=== PATIENT | female | born 1990 | race Caucasian/White ===

== ENCOUNTER 2017-03-27 10:11 | Emergency (ER) | payer BC ==
--- NOTE | 2017-03-27 11:57 | RAD ---
HISTORY: Left wrist trauma COMPARISONS: None VIEWS: 4, Frontal, lateral, and oblique views of the left wrist FINDINGS: BONE DENSITY: Normal. BONES: On a single frontal projection, there is a questionable linear lucency of the distal radial metaphysis extending to the articular surface. JOINTS: There is no arthropathy. ALIGNMENT: There is no dislocation. SOFT TISSUES: Unremarkable. OTHER FINDINGS: None. IMPRESSION: QUESTIONABLE NONDISPLACED FRACTURE OF THE DISTAL RADIAL METAPHYSIS. IF SYMPTOMS PERSIST, RECOMMEND REPEAT IMAGING.
[2017-03-27 12:27] VITALS: BP 135/80
--- NOTE | 2017-03-27 13:32 | UC ---
Hand/Wrist HPI - HPI Summary HPI Summary: LOST BALANCE TURNING AWAY FROM LOCKING CAR DOOR THIS MORNING, FELL ONTO OUTSTRRETCHED LEFT HAND. PAIN IN LEFT THUMB AND WRIST. NO RPEVIOUS INJURY - History Of Current Complaint Chief Complaint: UCUpperExtremity Stated Complaint: WRIST INJURY FROM FALL Time Seen by Provider: 03/27/17 11:15 Hx Obtained From: Patient Hx Last Menstrual Period: 01/08/17 Onset/Duration: Sudden Onset, Lasting Hours, Still Present Severity Initially: Moderate Severity Currently: Moderate Pain Intensity: 0 Pain Scale Used: 0-10 Numeric Character Of Pain: Dull, Aching Aggravating Factor(s): Lifting, Flexion, Extension Alleviating: Nothing Associated Signs And Symptoms: Positive: Negative Related History: Dominant Hand Right - Allergies/Home Medications Allergies/Adverse Reactions: Allergies Allergy/AdvReac Type Severity Reaction Status Date / Time Mupirocin Allergy Hives Verified 03/27/17 10:24 PMH/Surg Hx/FS Hx/Imm Hx Previously Healthy: Yes - Surgical History Surgical History: None - Family History Known Family History: Negative: Other - JOINT LAXITY - Social History Occupation: Employed Full-time Lives: With Family Alcohol Use: Rare Substance Use Type: None Smoking Status (MU): Never Smoked Tobacco Review of Systems Constitutional: Negative Skin: Negative Eyes: Negative ENT: Negative Respiratory: Negative Cardiovascular: Negative Gastrointestinal: Negative Genitourinary: Negative Motor: Negative Neurovascular: Negative Musculoskeletal: Arthralgia, Myalgia Neurological: Negative Psychological: Negative All Other Systems Reviewed And Are Negative: Yes Physical Exam Triage Information Reviewed: Yes Appearance: Well-Appearing, Well-Nourished, Pain Distress - MILD Vital Signs: Initial Vital Signs Temp 98 F 03/27/17 10:25 Pulse 83 03/27/17 10:25 Resp 17 03/27/17 10:25 BP 141/79 03/27/17 10:25 Pulse Ox 99 03/27/17 10:25 Vital Signs Reviewed: Yes Eye Exam: Normal ENT Exam: Normal Dental Exam: Normal Neck exam: Normal Neck: Positive: Supple, Nontender, No Lymphadenopathy Respiratory Exam: Normal Respiratory: Positive: Chest non-tender, Lungs clear, Normal breath sounds, No respiratory distress, No accessory muscle use Cardiovascular Exam: Normal Cardiovascular: Positive: RRR, No Murmur, Pulses Normal, Brisk Capillary Refill Abdominal Exam: Normal Musculoskeletal: Positive: No Edema, Strength Limited @ - LEFT WRIST, ROM Limited @ - FLEXION LEFT WRIST/THUMB, Other: - LEFT SNUFFBOX TENDER Neurological Exam: Normal Psychological Exam: Normal Skin Exam: Normal Hand/Wrist Course/Dx - Differential Dx/Diagnosis Differential Diagnosis/HQI/PQRI: Fracture, Sprain, Strain Provider Diagnoses: CLOSED POSSIBLE NONDISPLACED FRACTURE OF LEFT DISTAL RADIAL METAPHYSIS Discharge - Discharge Plan Condition: Stable Disposition: HOME Patient Education Materials: Wrist Injury (ED), Suspected Fracture (ED) Forms: *Work Release Referrals: Florentino Downey MD [Medical Doctor] - Saji Victor MD [Primary Care Provider] -
== END 2017-03-27 12:32 | disposition home or self-care (01) ==
LOC: UCEAST 10:11
DX: S69.92XA Unspecified injury of left wrist, hand and finger(s), initial encounter (principal); W18.30XA Fall on same level, unspecified, initial encounter; Y93.9 Activity, unspecified; Y92.9 Unspecified place or not applicable
CPT/HCPCS: 99212; G0463

== ENCOUNTER → 2018-08-13 23:11 | Emergency (ER) | payer BC ==
[~2018-08-13 23:11] MED LIST: Ondansetron ODT TAB* 4 MG SL ONE
--- OUTSIDE RECORDS SUMMARY | 2018-08-13 23:25 | XMS REPORT | Continuity of Care Document ---
:1990 External Reference #:[id number] Author Name Brianna Cason MD Address [address] [place] [address] Care Team Providers Name Role Phone [facility] Primary Care Physician Unavailable Payers Type Date Identification Numbers Payment Provider Subscriber Effective: Policy Number: [id number] Mari BC/BS Lexi Calles 2014 [facility] PayID: [id number] [address] [address] [place] [address] Advance Directives Description No Information Available Problems Description No Active Problems Family History Date Family Member(s) Problem(s) Comments Father Hypercholesterolemia Father Hypertension Mother Pulmonic Stenosis Mother Hypertension Mother Hypercholesterolemia Mother Hypothyroidism Number of Children None Number of Siblings Siblings: 1 Order Patient is the oldest of two children First Sister Asthma Paternal Grandfather Diabetes Paternal Grandfather Prostate Cancer Paternal Grandfather Hypertension Paternal Grandfather MS Paternal Grandmother Colon Cancer Maternal Grandfather due to Diabetes () Maternal Grandfather due to Heart Disease () Maternal Grandfather due to COPD () Maternal Grandmother Breast Cancer Maternal Grandmother Hypercholesterolemia Maternal Grandmother Aortic Stenosis Maternal Grandmother Hypertension Maternal Grandmother Hypothyroidism Social History Type Date Description Comments Sex Unknown Education Highest level of education completed is an associate degree Marital Status Patient is Living Situation Lives with spouse Occupation RN [employer] Cigarette Use Never smoked cigarettes Alcohol Rarely drinks alcohol Tobacco Use Start: Unknown Patient has never smoked Drug Use Denies drug use Smoking Status Reviewed: 07/16/18 Patient has never smoked Daily Caffeine occ soda Exercise Type/Frequency Exercises sporadically Current Seat Belt/Car Seat Always uses a seat belt Currently Active The patient is currently sexually active Contraceptive Methods Does not currently use any method of control STD's No STD history Allergies, Adverse Reactions, Alerts Date Description Reaction Status Severity Comments 07/12/2014 Mupirocin Active 05/13/2010 NKDA Inactive Medications Medication Date Status Form Strength Qnty SIG Indications Ordering Provider Metformin HCL 03/05/ Active Tablets ER 500mg 360tab two tabs in Tia ER 2017 24HR s in the Koch, morning and CNM at night / Active Tablets 14-0.4mg 1 by mouth Unknown Complete 0000 every day Vitamin D / Active Unknown 0000 Iron (Ferrous / Active Unknown Sulfate) 0000 B-12 / Active Unknown 0000 Prometrium 05/12/ Hx Capsules 200mg 30caps take 1 Lakesha 2017 - capsule by Mateo 07/13/ mouth 10 2018 days every 3 months Doxycycline 05/12/ Hx Tablets 100mg 6tabs 1 by mouth Lakesha Hyclate 2017 - twice a day Mateo 07/14/ for 3 days 2018 Prometrium 04/05/ Hx Capsules 100mg 90caps 1 by mouth Lakesha 2017 - at bedtime Mateo 05/12/ days 1-10 2017 of month. Nor-qd 08/14/ Hx Tablets 0.35mg 28tabs 1 by mouth Z30.49 Rayna 2015 - every day Kandace, 04/10/ needs ANP-C 2015 appointment No Active 06/15/ Hx Unknown Medications 2012 - 2012 Nuvaring 06/15/ Hx Ring 0.12-0.015 1units insert as Z30.49 Rayna 2012 - mg/24HR directed. Kandace, 08/14/ ANP-C 2015 June Fe 08/29 07/30/ Hx Tabs 1-20mg-mcg 28tabs Take One Rayna 2009 - Tablet By Kandace, 06/08/ Mouth One ANP-C 2010 Time Daily Loestrin Fe 05/13/ Hx Tablets 1-20mg-mcg 3month 1 po qd V25.49 Rayna 08/29 2009 - s Jump, 06/08/ ANP-C 2010 Ortho-Tri / Hx Unknown Cyclen Lo 0000 - 2010 Sprintec 28 / Hx Unknown - 2011 Metoprolol / Hx 25mg Unknown Succinate ER 2015 Aspirin / Hx 81mg Unknown 2016 Topiramate / Hx 25mg Unknown 2016 Vitamin B-12 / Hx Tablets 50mcg 1 po qd Unknown 2017 Medications Administered in Office Medication Date Status Form Strength Qnty SIG Indications Ordering Provider PT SCRN Tbco Administered Injection Yoav Id as Non User 018 MD Brianna PT SCRN Tbco Administered Injection Lakesha Id as Non User 018 MD Mateo PT SCRN Tbco Administered Injection Lakesha Id as Non User 018 MD Mtaeo Immunizations Description No Information Available Vital Signs Date Vital Result Comment 07/16/2018 10:05am BP Systolic 124 mmHg BP Diastolic 72 mmHg Height 64 inches 5'4" Weight 227.00 lb BMI (Body Mass Index) 39.0 kg/m2 Last Menstrual Period [id number] 0 05/12/2018 11:41am BP Systolic 138 mmHg BP Diastolic 70 mmHg Height 64 inches 5'4" Weight 224.00 lb BMI (Body Mass Index) 38.4 kg/m2 Last Menstrual Period [id number] 0 03/31/2018 1:40pm BP Systolic 134 mmHg BP Diastolic 72 mmHg Height 64 inches 5'4" Weight 222.00 lb BMI (Body Mass Index) 38.1 kg/m2 Last Menstrual Period [id number] 0 12/31/2017 1:05pm BP Systolic 112 mmHg BP Diastolic 84 mmHg Height 64 inches 5'4" Weight 220.00 lb BMI (Body Mass Index) 37.8 kg/m2 Last Menstrual Period [id number] 0 Parity 0 10/29/2017 2:28pm BP Systolic 122 mmHg BP Diastolic 80 mmHg Height 64 inches 5'4" Weight 224.00 lb BMI (Body Mass Index) 38.4 kg/m2 0 Parity 0 03/05/2017 9:23am BP Systolic 130 mmHg BP Diastolic 76 mmHg Height 64 inches 5'4" Weight 234.00 lb BMI (Body Mass Index) 40.2 kg/m2 Last Menstrual Period [id number] 0 01/26/2017 11:28am BP Systolic 126 mmHg BP Diastolic 76 mmHg Height 64 inches 5'4" Weight 234.00 lb BMI (Body Mass Index) 40.2 kg/m2 Last Menstrual Period [id number] 0 08/14/2015 2:22pm BP Systolic 140 mmHg BP Diastolic 70 mmHg Height 63.75 inches 5'3.75" Weight 227.00 lb BMI (Body Mass Index) 39.3 kg/m2 Last Menstrual Period [id number] 0 Parity 0 08/09/2014 8:47am BP Systolic 112 mmHg BP Diastolic 66 mmHg Height 63.75 inches 5'3.75" Weight 214.00 lb BMI (Body Mass Index) 37.0 kg/m2 Last Menstrual Period [id number] 0 Parity 0 07/12/2014 2:50pm BP Systolic 102 mmHg BP Diastolic 66 mmHg Height 63.75 inches 5'3.75" Weight 214.00 lb BMI (Body Mass Index) 37.0 kg/m2 Last Menstrual Period [id number] 0 Parity 0 06/15/2013 8:32am BP Systolic 130 mmHg BP Diastolic 80 mmHg Height 63.75 inches 5'3.75" Weight 214.00 lb BMI (Body Mass Index) 37.0 kg/m2 Last Menstrual Period [id number] 0 Parity 0 06/08/2012 1:53pm BP Systolic 136 mmHg BP Diastolic 76 mmHg Height 63.75 inches 5'3.75" Weight 196.00 lb BMI (Body Mass Index) 33.9 kg/m2 Last Menstrual Period [id number] 0 Parity 0 05/13/2010 10:34am BP Systolic 138 mmHg BP Diastolic 78 mmHg Height 63.75 inches 5'3.75" Weight 190.00 lb BMI (Body Mass Index) 32.9 kg/m2 Last Menstrual Period [id number] 0 Results Test Date Facility Test Result H/L Range Note Laboratory test 07/14/2018 [facility] C Reactive 9.37 mg/L High <8.01 1 [place] [address] Protein [phone] Hemoglobin A1c 5.4 % N 4.0-5.6 2 CBC Auto Diff 07/14/2018 [facility] White Blood 5.9 10^3/uL N 3.5-10.8 [place] [address] Count [phone] Red Blood Count 4.50 10^6/uL N 4.00-5.40 Hemoglobin 12.2 g/dL N 12.0-16.0 Hematocrit 38 % N 35-47 Mean Corpuscular Volume 84 fL N 80-97 Mean Corpuscular Hemoglobin 27 pg N 27-31 Mean Corpuscular HGB Conc 33 g/dL N 31-36 Red Cell Distribution Width 16 % High 10.5-15 Platelet Count 303 10^3/uL N 150-450 Mean Platelet Volume 8.5 fL N 7.4-10.4 Abs Neutrophils 3.7 10^3/uL N 1.5-7.7 Abs Lymphocytes 1.6 10^3/uL N 1.0-4.8 Abs Monocytes 0.4 10^3/uL N 0-0.8 Abs Eosinophils 0.1 10^3/uL N 0-0.6 Abs Basophils 0 10^3/uL N 0-0.2 Abs Nucleated RBC 0 10^3/uL Granulocyte % 62.3 % Lymphocyte % 27.9 % Monocyte % 6.9 % Eosinophil % 2.2 % Basophil % 0.7 % Nucleated Red Blood Cells % 0 Laboratory test 07/14/2018 [facility] Sedimentation Rate 25 mm/ Hr High 0-14 [place] [address] [phone] Lyme Disease Serology Negative Negative 3 Laboratory test 06/04/2018 [facility] Follicle 6.7 mIU/mL [address] [place] [address] Stimulating [phone] Hormone Estradiol 55 pg/mL 5 Comp Metabolic Panel 04/01/2018 [facility] Sodium 137 mmol/L N 135-145 6 [place], [place] [id number] [phone] Potassium 4.2 mmol/L N 3.5-5.0 Chloride 102 mmol/L N 101-111 Co2 Carbon Dioxide 26 mmol/L N 22-32 Anion Gap 9 mmol/L N 2-11 Glucose 84 mg/dL N 70-100 Blood Urea Nitrogen 15 mg/dL N 6-24 Creatinine 0.57 mg/dL N 0.51-0.95 BUN/Creatinine Ratio 26.3 High 8-20 Calcium 9.5 mg/dL N 8.6-10.3 Total Protein 6.7 g/dL N 6.4-8.9 Albumin 4.3 g/dL N 3.2-5.2 Globulin 2.4 g/dL N 2-4 Albumin/Globulin Ratio 1.8 N 1-3 Total Bilirubin 0.30 mg/dL N 0.2-1.0 Alkaline Phosphatase 101 U/L N 34-104 Alt 31 U/L N 7-52 Ast 21 U/L N 13-39 Egfr Non- 127.2 >60 Egfr 153.9 >60 7 Laboratory test 04/01/2018 [facility] Vitamin B12 397 pg/mL N 180-404 [address] [place] [address] [phone] Vitamin D Total 25(Oh) 44.7 ng/mL N 20-50 CBC With No 04/01/2018 [facility] White Blood 7.0 10^3/uL N 3.5-10.8 [place] [address] Count [phone] Red Blood Count 4.20 10^6/uL N 4.00-5.40 Hemoglobin 10.8 g/dL Low 12.0-16.0 Hematocrit 33 % Low 35-47 Mean Corpuscular Volume 79 fL Low 80-97 Mean Corpuscular Hemoglobin 26 pg Low 27-31 Mean Corpuscular HGB Conc 33 g/dL N 31-36 Red Cell Distribution Width 17 % High 10.5-15 Platelet Count 285 10^3/uL N 150-450 Mean Platelet Volume 8.2 um3 N 7.4-10.4 Laboratory test 10/29/2017 [facility] TSH 1.45 mcIU/mL N 0.34- 5.60 9, 10 [place] [address] [phone] T4 Free 0.92 ng/dL N 0.61-1.12 11 Vitamin B12 190 pg/mL N 180-176 12 FSH 6.9 mIU/mL 13 Lutenizing Hormone 10.4 mcIU/mL 14 Prolactin 8.4 ng/mL N 1.0-25.0 15 Testosterone Total 55.61 ng/dL N 8-60 16 Hemoglobin A1c 5.2 % N 4.0-5.6 17 Laboratory test 03/05/2017 [facility] Cytology SEE RESULT [address] [place] [address] BELOW [phone] Thinprep Pap Test 07/12/2014 [facility] ThinPrep Pap (SEE NOTE) 19 Use Standing Order Test reflex HPV if Asc-US TP Pap w/reflex HR HPV if ASCUS+1618 SEE IMAGE Laboratory test 06/15/2013 [facility] Cytology RUN DATE: 20 finding [place] [address] 06/20/ <SEE [phone] NOTE> Laboratory test 06/08/2012 [facility] Cytology RUN DATE: 21 finding [place] [address] <SEE [phone] NOTE> GC/Chlamydia 05/13/2010 [facility] CHL On Thin NEGATIVE Negative 22 Thin Prep Vial [place] [address] Prep Vial [phone] GC On Thin Prep Vial NEGATIVE Negative 23 Laboratory test 05/13/2010 [facility] Cytology normal 24 finding [place] [address] <SEE NOTE> [phone] 1 called and left message to return phone call. keg 2 Therapeutic target for the treatment of diabetes mellitus patients is <7% HBA1C, and in selective patients <6.0%. Please refer to [place] [employer] diabetic care guidelines for further information. 3 No evidence of antibodies to B. burgdorferi detected. False negative results may occur in recently infected patients (<=2 weeks) due to low or undetectable antibody levels to B. burgdorferi. If recent exposure is suspected, a second sample should be collected and tested in 2-4 weeks. Test Performed by: [facility] [address] [place] [address] 4 Normally menstruating females - Follicular phase 3 - 9 - Mid-cycle peak 4 - 23 - Luteal phase 1 - 6 Postmenopausal females 16 - 114 5 Estradiols <40 pg/mL are sent to a reference lab for low range testing. Postmenopausal Females < 20 Ovulating females: by day in cycle relative to LH Peak Follicular phase - 12 10-50 - 4 60-200 Mid-cycle - 1 120-375 Luteal phase + 2 50-155 + 6 60-260 + 12 15-115 6 Reviewed results. Pt to switch to SL B12 and change to ferrous gluconate daily. Pt with anemia form heavy mense /will add on micronized progesterone 100 mg hs for 10 of the month to prevent menorrhagia. KEG left message to return phone call. keg 7 Because ethnic data is not always readily available, this report includes an eGFR for both -Americans and non- Americans. The National Kidney Disease Education Program (NKDEP) does not endorse the use of the MDRD equation for patients that are not between the ages of 18 and 70, are , have extremes of body size, muscle mass, or nutritional status, or are non- or non-. According to the National Kidney Foundation, irrespective of diagnosis, the stage of the disease is based on the level of kidney function: Stage Description GFR(mL/min/1.73 m(2)) 1 Kidney damage with normal or decreased GFR 90 2 Kidney damage with mild decrease in GFR 60-89 3 Moderate decrease in GFR 30-59 4 Severe decrease in GFR 15-29 5 Kidney failure <15 (or dialysis) 8 Normal Range 180 to 914 Indeterminate Range 145 to 180 Deficient Range <145 9 left message to return phone call to review results.Pt to call Md's cell number. TAMIKA 10 [id number] 11 [id number] 12 Normal Range 180 to 914 Indeterminate Range 145 to 180 Deficient Range <145 13 Normally menstruating females - Follicular phase 3 - 9 - Mid-cycle peak 4 - 23 - Luteal phase 1 - 6 Postmenopausal females 16 - 114 14 Normally menstruating females - Follicular Phase 1 - 18 - Mid-Cycle Peak 24 - 105 - Luteal Phase 0.6 - 20 Postmenopausal females 15 - 62 15 [id number] 16 [id number] 17 Therapeutic target for the treatment of diabetes mellitus patients is <7% HBA1C, and in selective patients <6.0%. Please refer to [place] [employer] diabetic care guidelines for further information. 18 SEE RESULT BELOW Name: LEXI CALLES : [address]: Coleman Wilder MD Acct: [id number] Unit: [id number] AGE: 27 Location: [facility] Re03/05/17 SEX: F Status: REG REF SPEC: [id number] ELLIOT: 03/05/17-1019 [facility] DR: Coleman Wilder MD REQ: [id number] RECD: 03/05/171202 STATUS: SOUT _ ORDERED: TP IMAGE ANAL COMMENTS: [id number] FINAL DIAGNOSIS Negative for Intraepithelial lesion or Malignancy A. Ectocervical/Endocervical Specimen Adequacy: Satisfactory of evaluation Transformation zone component identified Patient Information: HPV: Thin Layer Pap Test w/reflex to high risk HPV RNA testing when ASCUS Actual Specimen Date: 03/05/17 Last Menstrual Date: 01/25/17 Date of Last Specimen: 07/12/14 Signed (signature on file) JUAN Palm (ASCP) 03/06 4072 This Pap test was evaluated with the assistance of the Turned [employer] Digitalp Test Imaging System. Due to cytologic findings at the steeping press operator microscope, comprehensive manual rescreening by a Envelope Stuffer may be required. The Pap Smear is a screening test designed to aid in the detection of premalignant and malignant conditions of the uterine cervix. It is not a diagnostic procedure and should not be used as the sole means of detecting cervical cancer. Both false- positive and false- negative reports do occur. Depending on your risk status, a Pap smear should be obtained and evaluated every 1-3 years. END OF REPORT * ML=Testing performed at Main Lab DEPARTMENT OF PATHOLOGY, [address] [place] [address] Molina Arellano M.D. Director YUSUF # [id number] 19 SPECIMEN PART A. Cervical, Endocervical, ThinPrep Pap (Senior Chemical Engineer) CYTOLOGY HX Date of Last Menstrual Period: 06/12/2014 Other Information: Previous Pap: 07/04/2013 Routine Exam FINAL DIAGNOSIS INTERPRETATION: Negative for Intraepithelial Lesion or Malignancy. SPECIMEN ADEQUACY: Satisfactory for evaluation. Endocervical/transformation zone component present. 20 RUN DATE: 06/20/13 [facility] LAB LIVE PAGE 1 RUN TIME: [address] [place] [address] Specimen Inquiry Name: LEXI BOO : [address]: Rayna Jeronimo CNP Acct: [id number] Unit: [id number] AGE: 23 Location: [facility] Re06/15/13 SEX: F Status: REG REF SPEC: [id number] ELLIOT: 06/15/13[address] [facility] DR: Rayna Jeronimo CNP REQ: [id number] RECD: 06/15/13 STATUS: SOUT _ ORDERED: IMAGE ANALYSIS FINAL DIAGNOSIS Negative for Intraepithelial lesion or Malignancy A. Ectocervical/Endocervical Specimen Adequacy: Satisfactory of evaluation Transformation zone component identified Patient Information: HPV: Thin Layer Pap Test w/reflex to high risk HPV DNA testing when ASCUS Actual Specimen Date: 06/15/13 Last Menstrual Date: 04/24/13 Date of Last Specimen: 06/08/12 Signed (signature on file) JUAN Palm (ASCP) 06/20 0808 This Pap test was evaluated with the assistance of the [employer] UpPrep Test Imaging System. Due to cytologic findings at the steeping press operator microscope, comprehensive manual rescreening by a Envelope Stuffer may be required. The Pap Smear is a screening test designed to aid in the detection of premalignant and malignant conditions of the uterine cervix. It is not a diagnostic procedure and should not be used as the sole means of detecting cervical cancer. Both false- positive and false- negative reports do occur. Depending on your risk status, a Pap smear shoudl be obtained and evaluated every 1-3 years. END OF REPORT * ML=Testing performed at Main Lab DEPARTMENT OF PATHOLOGY, [address] [place] [address] Molina Arellano M.D. Director [facility] Permit #[id number] RUN DATE: 06/09/12 [facility] LAB LIVE PAGE 1 RUN TIME: 1420 [address] [facility], [place], [place] [address] Specimen Inquiry Name: LEXI BOO BITA : [address]: Rayna Jeronimo CNP Acct: [id number] Unit: [id number] AGE: 22 Location: [facility] Re06/08/12 SEX: F Status: REG REF SPEC: [id number] ELLIOT: 06/08/12-[address]: Rayna Jeronimo CNP REQ: [id number] RECD: 06/09/12-5770 STATUS: SOUT _ ORDERED: IMAGE ANALYSIS Negative for Intraepithelial lesion or Malignancy A. Ectocervical/Endocervical Specimen Adequacy: Satisfactory of evaluation Transformation zone component identified Patient Information: HPV: Thin Layer Pap Test w/reflex to high risk HPV DNA testing when ASCUS Actual Specimen Date: 06/08/12 Last Menstrual Date: 05/14/12 Date of Last Specimen: 05/13/10 Signed (signature on file) JUAN Palm (ASCP) 06/09 8366 This Pap test was evaluated with the assistance of the [employer] UpPrep Test Imaging System. Due to cytologic findings at the steeping press operator microscope, comprehensive manual rescreening by a Envelope Stuffer may be required. The Pap Smear is a screening test designed to aid in the detection of premalignant and malignant conditions of the uterine cervix. It is not a diagnostic procedure and should not be used as the sole means of detecting cervical cancer. Both false- positive and false- negative reports do occur. Depending on your risk status, a Pap smear shoudl be obtained and evaluated every 1-3 years. END OF REPORT * ML=Testing performed at [facility] DEPARTMENT OF PATHOLOGY, [address] [place] [address] Molina Arellano M.D. Director [facility] Permit #[id number] 22 . A negative result does not preclude the presence of a C.trachomatis or N.gonorrhoeae infection because results are dependent on adequate specimen collection, absence of inhibitors, and sufficient rRNA to be detected. Test results may be affected by improper specimen collection, improper specimen storage, technical error, or specimen mixup. . 23 . A negative result does not preclude the presence of a C.trachomatis or N.gonorrhoeae infection because results are dependent on adequate specimen collection, absence of inhibitors, and sufficient rRNA to be detected. Test results may be affected by improper specimen collection, improper specimen storage, technical error, or specimen mixup. . 24 ---- RUN DATE: 05/14/10 [facility] NMI LIVE PAGE 1 RUN TIME: 1015 Specimen Inquiry RUN USER: INTERFACE -- Name: LEXI BOO Status: REG REF Re05/13/10 Age/Sex: 20/F Unit#: [id number] Location: [facility]. : [birth year] -- Specimen: [id number] SOUT Spec Date: 05/13/10 [facility] Dr: Rayna Celis mp CARDIOLOGY TECHNOLOGIST Spec Type: CYTOLOGY Received: 05/14/1042 Copies to: SOURCE ECTOCERVICAL/ENDOCERVICAL Thin Prep with Reflex HPV Test PATIENT INFORMATION ACTUAL COLLECTION DATE: 05/13/10 LAST MENSTRUAL PERIOD: 04/14/10 PATIENT HISTORY: first pap ADEQUACY OF SPECIMEN Satisfactory for evaluation * Transformation zone component identified * DIAGNOSIS NEGATIVE FOR INTRAEPITHELIAL LESION OR MALIGNANCY * This Pap test was evaluated with the assistance of the ThinPrep Pap Test Imaging System. The Pap Smear is a screening test designed to aid in the detection of premalign ant and malignant conditions of the uterine cervix. It is not a diagnostic procedure a nd should not be used as the sole means of detecting cervical cancer. Both false- positiv e and false-negative reports do occur. Depending on your risk status, a Pap smear sally uld be obtained and evaluated every one to three years. Final Interpretation electronically signed by: Lorrie CAMP([facility]) 05/14/10 101 4 -- -- DEPARTMENT OF PATHOLOGY, [address] [place] [address] [facility] Permit #[id number] Molina Arellano M.D. Director Trinidad Vasquez M.D. Continuous Improvement Coordinator Dir puente -- Procedures Date Code Description Status 06/07/2018 74903 Hysterosalpingogram Completed 12/31/2017 58943 Echography Transvaginal Completed 03/05/2017 47975 Echography Transvaginal Completed 08/09/2014 29953 Echography Transvaginal Completed Encounters Type Date Location Provider Dx Diagnosis Office Visit 07/16/2018 [facility] Brianna Cason, N97.9 Female infertility, 10:00a unspecified Office Visit 03/31/2018 [facility] Lakesha Galindo, E28.2 Polycystic ovarian 1:45p syndrome Office Visit 12/31/2017 [facility] Lakesha Galindo, E28.2 Polycystic ovarian 1:15p syndrome Office Visit 03/05/2017 [facility] Coleman Wilder, Z01.411 Encntr for obstetrician gynecologist exam 9:30a M.D. (general) (routine) w abnormal findings E28.2 Polycystic ovarian syndrome Office Visit 01/26/2017 11:30a [facility] Coleman Wilder, N92.0 Excessive and M.D. frequent menstruation with regular cycle Z13.0 Encntr screen for dis of the bld[facility] Visit 08/14/2015 2:40p [facility] Rayna Jeronimo, Z01.419 Encntr for obstetrician gynecologist ANP-C exam (general) (routine) w/o abn findings Office Visit 08/09/2014 9:00a [facility] Rayna Jeronimo, 789.9 Abdomen & Pelvis ANP-C Symptoms Other 625.3 Dysmenorrhea Office Visit 07/12/2014 3:00p [facility] Rayna Jeronimo, V72.31 Routine Rip Tailer ANP-C Examination V76.2 Screening Malignant Neoplasm Cervix V25.49 Contraceptive Other Method Surveillance 789.9 Abdomen & Pelvis Symptoms Other Office Visit 06/15/2013 8:40a [facility] Rayna Jeronimo, V72.31 Routine Rip Tailer ANP-C Examination V76.2 Screening Malignant Neoplasm Cervix V25.49 Contraceptive Other Method Surveillance Office Visit 06/08/2012 2:20p [facility] Rayna Jeronimo, V72.31 Routine Rip Tailer ANP-C Examination V76.2 Screening Malignant Neoplasm Cervix 616.10 Vaginitis & Vulvovaginitis Unspec Office Visit 05/13/2010 10:40a [facility] Rayna Jeronimo, 626.2 Menstruation ANP-C Excessive Or Frequent V25.49 Contraceptive Other Method Surveillance Plan of Treatment 07/16/2018 - Brianna Cason MDN97.9 Female infertility, unspecifiedComments: Emphasized the importance of weight loss and its significant impact on fertility and . Discussed alternative forms of exercise that will not bother her foot including pool classes or riding abike. Recommend seeing a commercial cleaner or six sigma black trainer who can keep her accountable with diet changes and exercise. Encourage serious focus on weight loss for 6 months before discussing clomid forcycle control since the weight is likely impacting her cycles and ability to become . Also encourage a consult with a fertility specialise to discuss her options in regards to the blocked tube.
--- NOTE | 2018-08-14 01:29 | ED ---
Abdominal Pain/Female - HPI Summary HPI Summary: This patient is a 28 year old F presenting to [facility] accompanied by with a chief complaint of epigastric abdominal pain for the past four days. Pain 6/ 10 upon triage. Reports nausea, intermittent vomiting and diarrhea. Reports max fever of 100F . - History of Current Complaint Chief Complaint: EDAbdPain Stated Complaint: ABD PAIN/FEVER Time Seen by Provider: 08/14/18 01:25 Hx Obtained From: Patient Hx Last Menstrual Period: 01/08/17 Onset/Duration: Gradual Onset, Lasting Days Timing: Constant Pain Intensity: 6 Pain Scale Used: 0-10 Numeric Location: Epigastric Alleviating Factor(s): Nothing Associated Signs and Symptoms: Positive: Fever, Nausea, Vomiting, Diarrhea Allergies/Adverse Reactions: Allergies Allergy/AdvReac Type Severity Reaction Status Date / Time MS Mupirocin [Mupirocin] Allergy Hives Verified 04/03/17 15:29 PMH/Surg Hx/FS Hx/Imm Hx Endocrine/Hematology History: Denies: Hx Diabetes, Hx Thyroid Disease Cardiovascular History: Denies: Hx Hypertension, Hx Pacemaker/ICD Respiratory History: Denies: Hx Asthma, Hx Chronic Obstructive Pulmonary Disease (COPD) GI History: Denies: Hx Ulcer History: Denies: Hx Renal Disease Sensory History: Denies: Hx Hearing Aid Neurological History: Reports: Hx Seizures Psychiatric History: Denies: Hx Panic Disorder Infectious Disease History: No Infectious Disease History: Denies: Hx Clostridium Difficile, Hx Hepatitis, Hx Human Immunodeficiency Virus (HIV), Hx of Known/Suspected MRSA, Hx Shingles, Hx Tuberculosis, Hx Known/ Suspected VRE, Hx Known/Suspected VRSA, History Other Infectious Disease, Traveled Outside the [place] in Last 30 Days - Family History Known Family History: Negative: Other - JOINT LAXITY - Social History Alcohol Use: Rare Substance Use Type: Reports: None Smoking Status (MU): Never Smoked Tobacco Review of Systems Positive: Fever Positive: Abdominal Pain, Vomiting, Diarrhea, Nausea All Other Systems Reviewed And Are Negative: Yes Physical Exam - Summary Physical Exam Summary: Appearance: Well-appearing, Well-nourished, lying in bed comfortably Skin: Warm, dry, no obvious rash Eyes: sclera anicteric, no conjunctival pallor ENT: mucous membranes moist, pharynx appears normal Neck: Supple, nontender Respiratory: Clear to auscultation, no signs of respiratory distress Cardiovascular: Normal S1, S2. No murmurs. Normal distal pulses in tibial and radial bilaterally. Abdomen: Soft, nontender, normal active bowel sounds present Musculoskeletal: Normal, Strength/ROM Intact Neurological: A&Ox3, awake and alert, mentation is normal, speech is fluent and appropriate Psychiatric: affect is normal, does not appear anxious or depressed Triage Information Reviewed: Yes Vital Signs On Initial Exam: Initial Vitals Temp Pulse Resp BP Pulse Ox 97.9 F 99 20 157/85 99 08/13/18 23:18 08/13/18 23:18 08/13/18 23:18 08/13/18 23:18 08/13/18 23:18 Vital Signs Reviewed: Yes Diagnostics - Vital Signs Vital Signs Temp Pulse Resp BP Pulse Ox 08/13/18 23:18 97.9 F 99 20 157/85 99 - Laboratory Result Diagrams: 08/14/18 00:45 08/14/18 01:34 Lab Statement: Any lab studies that have been ordered have been reviewed, and results considered in the medical decision making process. Abdominal Pain Fem Course/Dx - Course Course Of Treatment: 28 year old F presenting to [facility] accompanied by with a chief complaint of epigastric abdominal pain for the past four days. Pain 6/10 upon triage. Reports nausea, intermittent vomiting and diarrhea. Reports max fever of 100F . Patient is non-febrile while in the ED. Bloodwork is WNL. Patient is given Zofran. Symptoms improved while in ED and patient is discharged home. - Diagnoses Provider Diagnoses: Gastroenteritis Discharge - Sign-Out/Discharge Documenting (check all that apply): Patient Departure - discharge - Discharge Plan Condition: Good Disposition: HOME Prescriptions: Ondansetron ODT TAB* [Zofran 4 MG Odt TAB*] 8 mg PO Q6H PRN #10 tab.odt PRN Reason: Nausea Patient Education Materials: Acute Nausea and Vomiting (ED) Forms: *Work Release Referrals: Saji Victor MD [Primary Care Provider] - 3 Days (if not better ) - Billing Disposition and Condition Condition: GOOD Disposition: Home - Attestation Statements Document Initiated by Scribe: Yes Documenting Scribe: Kristal Bobo Provider For Whom Scribe is Documenting (Include Credential): Sincere Romo MD Scribe Attestation: Kristal Kim scribed for Sincere Romo MD on 08/14/18 at 1841. Scribe Documentation Reviewed: Yes Provider Attestation: The documentation as recorded by the scribe, Kristal Bobo accurately reflects the service I personally performed and the decisions made by me, Sincere Romo MD Status of Scrwillem Document: Viewed
[2018-08-14 01:43] LABS: ABS Basophils 0.1 10^3/ul (0-0.2); ABS Eosinophils 0.2 10^3/ul (0-0.6); ABS Lymphocytes 3.3 10^3/ul (1.0-4.8); ABS Monocytes 0.7 10^3/ul (0-0.8); ABS Nucleated RBC 0 10^3/ul; Eosinophil % 1.8 %; Hematocrit 37 % (35-47); Hemoglobin 12.1 g/dl (12.0-16.0); Lymphocyte % 35.5 %; Mean Corpuscular HGB Conc 33 g/dl (31-36); Mean Corpuscular Hemoglobin 27 pg (27-31); Mean Corpuscular Volume 83 fL (80-97); Mean Platelet Volume 8.6 fL (7.4-10.4); Nucleated Red Blood Cells % 0; Platelet Count 262 10^3/ul (150-450); Red Blood Count 4.46 10^6/ul (4.00-5.40); Red Cell Distribution Width 16 % (10.5-15); White Blood Count 9.2 10^3/ul (3.5-10.8)
[2018-08-14 02:01] LABS: Albumin 4.6 g/dL (3.2-5.2); Albumin/Globulin Ratio 1.8 (1-3); Calcium 9.4 mg/dL (8.6-10.3); EGFR Non-African American 138.4 (>60); Globulin 2.6 g/dL (2-4); Potassium 3.6 mmol/L (3.5-5.0); Total Bilirubin 0.3 mg/dL (0.2-1.0); Total Protein 7.2 g/dL (6.4-8.9)
[2018-08-14 03:11] VITALS: BP 128/82
== END | disposition home or self-care (01) ==
LOC: ED 23:11
DX: K52.9 Noninfective gastroenteritis and colitis, unspecified (principal); Z88.1 Allergy status to other antibiotic agents
CPT/HCPCS: 36415; 80053; 83690; 85025; 99282; A9270-GY

== ENCOUNTER 2021-09-27 05:00 | Inpatient (IN) ==
[2021-09-27] MEDS: Lactated Ringers 1000 ml BAG 1,000 ML IV SCH ×3 (05:50→10:25)
[2021-09-27 05:57] LABS: ABS Lymphocytes 2.3 10^3/ul (1.0-4.8); ABS Monocytes 0.6 10^3/ul (0-0.8); ABS Neutrophils 3.9 10^3/ul (1.5-7.7); Eosinophil % 0.4 %; Hematocrit 39 % (35-47); Hemoglobin 13.3 g/dL (12.0-16.0); Lymphocyte % 33.7 %; Mean Corpuscular HGB Conc 34 g/dL (31-36); Mean Corpuscular Hemoglobin 32 pg (27-31); Mean Corpuscular Volume 93 fL (80-97); Mean Platelet Volume 9.1 fL (7.4-10.4); Platelet Count 204 10^3/uL (150-450); Red Blood Count 4.18 10^6 /uL (3.70-4.87); Red Cell Distribution Width 14 % (10-15); White Blood Count 6.8 10^3/uL (3.5-10.8)
[2021-09-27] MEDS ORDERED: Buffered Lidocaine 1% SYRIN 1 ml INTRADERM ONE (06:00)
[2021-09-27] MEDS ORDERED: Sodium Citrate/Citric Acid LIQ 15 ML UDC PO ONE (06:00)
[2021-09-27] MEDS ORDERED: ceFOXitin 2 GM PREMIX 50 ML IVPB ONE (06:00)
[2021-09-27 06:18] LABS: Urine Benzodiazepine Screen None Detected (None Detect); Urine Opiates Screen None Detected (None Detect)
[2021-09-27] MEDS ORDERED: Phenylephrine 40 mcg/mL 10mL (400mcg) SYRINGE ONE ×2 (07:07→09:26)
[2021-09-27] MEDS ORDERED: Morphine PF AMP (0.5MG/ML) 5 MG/10 ML AMP ONE (07:08)
[2021-09-27] MEDS ORDERED: Ondansetron 4 mg VIAL 2 MG/ML 2 ml VIAL ONE (08:51)
[2021-09-27] MEDS ORDERED: Oxytocin 10 UNITS/ML 1 ML VIAL ONE ×2 (08:51→09:14)
[2021-09-27] MEDS ORDERED: EPHEDrine (Pressors) 50 MG/ML VIAL ONE (08:51)
[2021-09-27 09:03] LABS: Urine Appearance Cloudy; Urine Bilirubin Negative (Negative); Urine Blood 3+ (Negative); Urine Color Yellow; Urine Glucose Negative (Negative); Urine Ketones 1+ (Negative); Urine Nitrite Negative (Negative); Urine Protein 1+(30 mg/dL) (Negative); Urine Specific Gravity 1.024 (1.002-1.030); Urine Urobilinogen Negative (Negative)
[2021-09-27 09:14] LABS: Urine Bacteria Absent (Absent); Urine Red Blood Cell 3+(>10/hpf) (Absent); Urine Squamous Epithelial Cell Present (Absent); Urine White Blood Cell Trace(0-5/hpf) (Absent)
[2021-09-27] MEDS ORDERED: DiMENhydriNATE IV 50 mg/ml 1 ml VIAL IV PUSH PRN (09:40)
[2021-09-27] MEDS ORDERED: Naloxone 0.4 mg VIAL 0.4 mg/ml 1 ml VIAL IV PRN ×2 (09:40→09:41)
[2021-09-27] MEDS ORDERED: Ondansetron 4 mg VIAL 2 MG/ML 2 ml VIAL IV PRN (09:41)
[2021-09-27] MEDS ORDERED: Acetaminophen IV 1 GM/100ML 100 ML IV PRN (09:43)
[2021-09-27] MEDS ORDERED: Witch Hazel PAD JAR TOPICAL PRN (10:12)
[2021-09-27] MEDS ORDERED: Glycerin ADULT 2.4 gm SUPP PR PRN (10:12)
[2021-09-27] MEDS ORDERED: Lactated Ringers 1000 ml BAG 1,000 ML IV SCH (11:00)
[2021-09-28 07:43] LABS: ABS Lymphocytes 1.5 10^3/ul (1.0-4.8); ABS Monocytes 0.7 10^3/ul (0-0.8); ABS Neutrophils 5.1 10^3/ul (1.5-7.7); Eosinophil % 0.6 %; Hematocrit 26 % (35-47); Hemoglobin 8.8 g/dL (12.0-16.0); Mean Corpuscular HGB Conc 34 g/dL (31-36); Mean Corpuscular Hemoglobin 32 pg (27-31); Mean Corpuscular Volume 95 fL (80-97); Mean Platelet Volume 8.9 fL (7.4-10.4); Platelet Count 159 10^3/uL (150-450); Red Blood Count 2.71 10^6 /uL (3.70-4.87); Red Cell Distribution Width 14 % (10-15); White Blood Count 7.4 10^3/uL (3.5-10.8)
[2021-09-30 08:01] VITALS: BP 111/55
== END 2021-09-30 14:25 | disposition home or self-care (01) | DRG 540 ==
LOC: MCHOB 05:04
PROVIDERS: ADMIT Obstetrics & Gynecology; ATTEND Obstetrics & Gynecology

== ENCOUNTER 2023-10-14 05:31 | Inpatient (IN) ==
[2023-10-14] MEDS: Lactated Ringers 1000 ml BAG 1,000 ML IV ONE (06:15)
[2023-10-14] MEDS: Lactated Ringers 1000 ml BAG 1,000 ML IV SCH ×3 (07:13→09:33)
[2023-10-14 07:22] LABS: ABS Lymphocytes 1.8 10^3/uL (1.0-4.8); ABS Monocytes 0.4 10^3/uL (0.0-0.9); ABS Neutrophils 3.4 10^3/uL (1.5-7.6); Eosinophil % 0.5 %; Hematocrit 38.9 % (35-45); Hemoglobin 13.1 g/dL (11.5-14.3); Lymphocyte % 32.4 %; Mean Corpuscular Hemoglobin 31.6 pg (27-33); Mean Corpuscular Hgb Conc 33.7 g/dL (31-36); Mean Platelet Volume 10.2 fL (7.5-11.2); Nucleated Red Blood Cells % 0.1 %/100WBC (0.0-0.8); Platelet Count 153 10^3/uL (150-450); Red Blood Count 4.14 10^6/uL (3.63-4.92); White Blood Count 5.7 10^3/uL (3.8-11.8)
[2023-10-14] MEDS ORDERED: Ondansetron 4 mg VIAL 2 MG/ML 2 ml VIAL ONE (07:35)
[2023-10-14] MEDS ORDERED: Phenylephrine IV 10 MG/ML 1 ml VIAL ONE (07:35)
[2023-10-14] MEDS ORDERED: Oxytocin 10 UNITS/ML 1 ML VIAL ONE (07:35)
[2023-10-14] MEDS ORDERED: Dexamethasone IV 4 MG/ML VIAL 1 ml VIAL ONE (07:35)
[2023-10-14 07:46] LABS: Albumin 3.5 g/dL (3.2-5.2); Albumin/Globulin Ratio 1.7 (1-3); Calcium 8.7 mg/dL (8.6-10.3); Creatinine, Serum 0.53 mg/dL (0.51-0.95); Globulin 2.1 g/dL (2-4); Potassium 3.7 mmol/L (3.5-5.0); Total Bilirubin 0.4 mg/dL (0.2-1.0); Total Protein 5.6 g/dL (6.4-8.9); eGFR CKD-EPI 125.9 (>60)
[2023-10-14 07:47] LABS: Urine Benzodiazepine Screen None Detected (None Detect); Urine Cannabinoids Screen None Detected (None Detect); Urine Opiates Screen None Detected (None Detect)
[2023-10-14] MEDS ORDERED: fentaNYL 100 mcg/2 ml 50 MCG/ML VIAL IV PRN (07:49)
[2023-10-14] MEDS ORDERED: Naloxone 0.4 mg VIAL 0.4 mg/ml 1 ml VIAL IV PRN (07:49)
[2023-10-14] MEDS ORDERED: Metoclopramide 5 MG/ML VIAL (10 mg) IV PRN (07:51)
[2023-10-14] MEDS ORDERED: Ondansetron 4 mg VIAL 2 MG/ML 2 ml VIAL IV PRN (07:51)
[2023-10-14] MEDS ORDERED: Naloxone 0.4 mg VIAL 0.4 mg/ml 1 ml VIAL IV PUSH PRN (07:51)
[2023-10-14] MEDS ORDERED: Acetaminophen IV 1 GM/100ML 1,000 MG/100 ML BAG IV PRN (07:51)
[2023-10-14] MEDS ORDERED: Morphine PF AMP (0.5MG/ML) 5 MG/10 ML AMP ONE (07:59)
[2023-10-14] MEDS: Sodium Citrate/Citric Acid LIQ 15 ML UDC PO ONE ×2 (08:00→09:35)
[2023-10-14] MEDS: ceFOXitin 2 GM IVPREMIX 2 GM/50 ML BAG IVPB ONE (08:26)
[2023-10-14] MEDS: Oxytocin in LR 20,000 MILLI.UNIT/1,000 ML BAG IV SCH (08:30)
[2023-10-14] MEDS ORDERED: Acetaminophen IV 1 GM/100ML 1,000 MG/100 ML BAG IV ONE (08:52)
[2023-10-14] MEDS: Buffered Lidocaine 1% SYRIN 1 ml INTRADERM ONE ×2 (09:34)
[2023-10-14 09:36] LABS: Urine Appearance Clear; Urine Bilirubin Negative (Negative); Urine Blood Negative (Negative); Urine Color Light-Yellow; Urine Glucose Negative (Negative); Urine Ketones 1+ (Negative); Urine Nitrite Negative (Negative); Urine Protein Negative (Negative); Urine Specific Gravity 1.008 (1.002-1.030); Urine Urobilinogen Negative (Negative); Urine pH 6.5 (5.0-8.0)
[2023-10-14] MEDS ORDERED: Dibucaine 1% OINT 28.35 GM TUBE PR PRN (10:10)
[2023-10-14] MEDS ORDERED: Glycerin ADULT 2.4 gm SUPP PR PRN (10:10)
[2023-10-14] MEDS ORDERED: Witch Hazel PAD JAR TOPICAL PRN (10:10)
[2023-10-14] MEDS ORDERED: Lactated Ringers 1000 ml BAG 1,000 ML IV SCH (11:00)
[2023-10-15 05:46] LABS: Urine Appearance Clear; Urine Bilirubin Negative (Negative); Urine Blood Negative (Negative); Urine Color Light-Yellow; Urine Glucose Negative (Negative); Urine Ketones Trace (Negative); Urine Nitrite Negative (Negative); Urine Protein Negative (Negative); Urine Specific Gravity 1.009 (1.002-1.030); Urine Urobilinogen Negative (Negative); Urine pH 6.5 (5.0-8.0)
[2023-10-15 06:46] LABS: ABS Lymphocytes 2.2 10^3/uL (1.0-4.8); ABS Monocytes 0.7 10^3/uL (0.0-0.9); ABS Neutrophils 5.4 10^3/uL (1.5-7.6); Eosinophil % 0.5 %; Hematocrit 32.1 % (35-45); Hemoglobin 11.1 g/dL (11.5-14.3); Lymphocyte % 26.2 %; Mean Corpuscular Hemoglobin 32.7 pg (27-33); Mean Corpuscular Hgb Conc 34.6 g/dL (31-36); Mean Corpuscular Volume 94.4 fL (80-97); Mean Platelet Volume 9.4 fL (7.5-11.2); Platelet Count 150 10^3/uL (150-450); Red Cell Distribution Width 14.7 % (12-17); White Blood Count 8.4 10^3/uL (3.8-11.8)
[2023-10-17 08:15] VITALS: BP 138/76
== END 2023-10-17 17:44 | disposition home or self-care (01) | DRG 540 ==
LOC: MCHOB 05:31
PROVIDERS: ADMIT Obstetrics & Gynecology; ATTEND Obstetrics & Gynecology